=== PATIENT | female | born 1940 | race Two or more races ===

== ENCOUNTER 2024-06-12 08:47 | Inpatient (IN) | payer OTHER ==
[~2024-06-12] VITALS: Ht 157.5 cm; Wt 54.4 kg
[~2024-06-12 08:47] MED LIST: COZAAR50 MG PO; FUSION PLUS CA1 EACH PO; HORIZANT300 MG PO; HYDRODIURIL12.5 MG PO; PROTONIX40 MG PO; ZOCOR40 MG PO
--- NOTE | 2024-06-12 09:08 | NUR ---
SE RECIBE PACIENTE ALERTA Y ORIENTADA X3 LA CUAL REFIERE VENIR A [place] DE QUE TORSTENBraeden MORENO LE INDICO QUE VINIERA A [place] DE EMERGENCIAS PORQUE TENIA LA HEMOGLOBINA EN 8.80, LA MISMA REFIERE QUE LA DOCTORA LA VA A OPERAR EL VIERNES QUE VIENE DE ARLEN MASA EN EL COLON.
[2024-06-12] MEDS ORDERED: FUROsemide 20 MG/2 ML VIAL IV SCH (09:30)
[2024-06-12] MEDS ORDERED: FAMOTIDINE/PF 20 MG/2 ML VIAL ONE (09:30)
[2024-06-12] MEDS ORDERED: 0.9 % SODIUM CHLORIDE 1,000 ML IV SCH (09:30)
--- NOTE | 2024-06-12 09:51 | NUR ---
SE RECIBE PTE FEMENINA DE 84 YRS ALERTA CONCIENTE Y TRANQUILA . ES EVALUADA POR EL. QUIE ORDENA TRATAMIENTO LA CUAL SE EJECUTA POR MS.BETANCOURD BUSH . SE MANTIENE BAJO OBSRVACION.
[2024-06-12 10:03] LABS: HEMATOCRIT 27.1 % (36.0-45.00); MEAN CELL VOLUME 83.1 fL (80.00-100.00); MEAN CORPUSCULAR HEMOGLOBIN 27.9 pg (27.00-32.0); MEAN CORPUSCULAR HGB CONC 33.5 g/dl (32.0-36.0); PLATELET COUNT 624 K/uL (150-450); RED BLOOD COUNT 3.26 M/uL (4.00-6.00); RED CELL DISTRIBUTION WIDTH 17.8 % (11.5-14.5)
[2024-06-12 10:04] LABS: HEMOGLOBIN 9.1 g/dL (12.0-15.00)
[2024-06-12] MEDS ORDERED: ONDANSETRON HCL 2 MG/ML VIAL IV PRN (10:15)
[2024-06-12] MEDS ORDERED: RINGERS SOLUTION,LACTATED 1,000 ML IV SCH (10:15)
[2024-06-12 10:18] LABS: INR 1.05; PARTIAL THROMBOPLASTIN TIME 29.7 SECONDS (22.0-34.0); PROTHROMBIN TIME 11.4 SECONDS (9.0-11.5)
[2024-06-12 10:58] VITALS: BP 130/80
[2024-06-12 11:55] LABS: ALBUMIN 2.7 gm/dL (3.4-5.0); BILIRUBIN TOTAL 0.52 mg/dL (0.3-1.2); CALCIUM 9.7 mg/dL (8.5-10.1); CREATININE SERUM 1.17 mg/dL (0.55-1.02); GFR 43.96; GLOBULINA 4.7 G/DL (2.4-3.5); POTASSIUM 4.39 mEq/L (3.5-5.1); TOTAL PROTEIN 7.4 gm/dL (6.4-8.2)
[2024-06-12 12:16] LABS: ALBUMIN 2.6 gm/dL (3.4-5.0); BILIRUBIN TOTAL 0.47 mg/dL (0.3-1.2); CALCIUM 9.7 mg/dL (8.5-10.1); CREATININE SERUM 1.17 mg/dL (0.55-1.02); GFR 43.96; GLOBULINA 5.2 G/DL (2.4-3.5); HEMATOCRIT 28.1 % (36.0-45.00); MAGNESIUM 1.9 mg/dL (1.8-2.4); MEAN CELL VOLUME 83.7 fL (80.00-100.00); MEAN CORPUSCULAR HEMOGLOBIN 27.4 pg (27.00-32.0); MEAN CORPUSCULAR HGB CONC 32.7 g/dl (32.0-36.0); POTASSIUM 3.64 mEq/L (3.5-5.1); RED BLOOD COUNT 3.35 M/uL (4.00-6.00); RED CELL DISTRIBUTION WIDTH 17.3 % (11.5-14.5); TOTAL PROTEIN 7.8 gm/dL (6.4-8.2)
[2024-06-12 12:17] LABS: HEMOGLOBIN 9.2 g/dL (12.0-15.00)
[2024-06-12 12:18] LABS: PLATELET COUNT 619 K/uL (150-450)
[2024-06-12 12:24] LABS: INR 1.05; PARTIAL THROMBOPLASTIN TIME 31.6 SECONDS (22.0-34.0); PROTHROMBIN TIME 11.4 SECONDS (9.0-11.5)
[2024-06-12] MEDS ORDERED: MAGNESIUM SULFATE/D5W 100 ML IV NR (15:45)
[2024-06-12 17:00] VITALS: BP 177/75; O2SAT 98
[2024-06-12] MEDS ORDERED: POLYETHYLENE GLYCOL 3350 17 GM BLIST.PACK PO SCH (17:00)
[2024-06-12] MEDS ORDERED: FAMOTIDINE/PF 20 MG/2 ML VIAL IV SCH (21:00)
[2024-06-13 01:01] VITALS: BP 147/78; O2SAT 95
[2024-06-13 06:52] LABS: HEMATOCRIT 27.5 % (36.0-45.00); HEMOGLOBIN 9.2 g/dL (12.0-15.00); MEAN CELL VOLUME 82.5 fL (80.00-100.00); MEAN CORPUSCULAR HEMOGLOBIN 27.5 pg (27.00-32.0); MEAN CORPUSCULAR HGB CONC 33.3 g/dl (32.0-36.0); PLATELET COUNT 577 K/uL (150-450); RED BLOOD COUNT 3.34 M/uL (4.00-6.00); RED CELL DISTRIBUTION WIDTH 17.6 % (11.5-14.5)
[2024-06-13 07:35] LABS: ALBUMIN 2.2 gm/dL (3.4-5.0); CALCIUM 9.2 mg/dL (8.5-10.1); CREATININE SERUM 0.84 mg/dL (0.55-1.02); GFR 64.44; MAGNESIUM 1.9 mg/dL (1.8-2.4); PHOSPHOROUS 2.9 mg/dL (2.5-4.9); POTASSIUM 4.16 mEq/L (3.5-5.1)
[2024-06-13 08:00] VITALS: BP 127/79; O2SAT 95
[2024-06-13] MEDS ORDERED: BISACODYL 5 MG TABLET.EC PO NR (12:00)
[2024-06-13] MEDS ORDERED: POLYETHYLENE GLYCOL 3350 238 GM POWDER PO NR (13:00)
[2024-06-13 16:00] VITALS: BP 159/84; O2SAT 99
[2024-06-13] MEDS ORDERED: ENALAPRILAT DIHYDRATE 1.25 MG/ML VIAL IV PRN (19:45)
[2024-06-14 01:09] VITALS: BP 127/88; O2SAT 98
[2024-06-14 08:00] VITALS: BP 161/81; O2SAT 100
[2024-06-14] MEDS ORDERED: Cyanocobalamin/Mecobalamin 1 TAB.SL SL SCH (09:03)
[2024-06-14] MEDS ORDERED: IRON FUM,PS/FOLIC ACID/VITC/B3 1 CAP CAPSULE PO SCH (09:03)
[2024-06-14 10:33] VITALS: BP 132/64; O2SAT 96
[2024-06-14 16:00] VITALS: BP 133/76; O2SAT 95
[2024-06-14 21:44] LABS: HEMATOCRIT 36.3 % (36.0-45.00); HEMOGLOBIN 12.2 g/dL (12.0-15.00); MEAN CELL VOLUME 81.7 fL (80.00-100.00); MEAN CORPUSCULAR HEMOGLOBIN 27.4 pg (27.00-32.0); MEAN CORPUSCULAR HGB CONC 33.6 g/dl (32.0-36.0); RED BLOOD COUNT 4.44 M/uL (4.00-6.00); RED CELL DISTRIBUTION WIDTH 17.6 % (11.5-14.5)
[2024-06-14 21:54] LABS: ALBUMIN 2.4 gm/dL (3.4-5.0); CALCIUM 9.4 mg/dL (8.5-10.1); MAGNESIUM 1.5 mg/dL (1.8-2.4); POTASSIUM 4.07 mEq/L (3.5-5.1)
[2024-06-14 21:55] LABS: CREATININE SERUM 0.98 mg/dL (0.55-1.02); GFR 53.94; PHOSPHOROUS 2.5 mg/dL (2.5-4.9)
[2024-06-14 22:08] LABS: PLATELET COUNT 465 K/uL (150-450)
[2024-06-15] MEDS ORDERED: PYRIDOXINE HCL 100 MG TABLET PO SCH (09:00)
== END 2024-06-14 22:41 | disposition home or self-care (01) | DRG 376 ==
LOC: ER 08:48 → SURH 10:45 → SEC-K 10:45 → EDLOC 10:45 → SURG 14:25 → SURH 16:18 → SURG 17:32 → SURH 17:32
PROVIDERS: General Practice; ADMIT Colon & Rectal Surgery; ATTEND Colon & Rectal Surgery
PROC: 30233N1 Transfusion of Nonautologous Red Blood Cells into Peripheral Vein, Percutaneous Approach (ICD-10-PCS; principal; 2024-06-13)
DX: C18.0 Malignant neoplasm of cecum (principal); D63.0 Anemia in neoplastic disease; I10 Essential (primary) hypertension

== ENCOUNTER 2024-06-17 05:25 | Day surgery (SDC) | payer OTHER ==
[2024-06-10 14:02] VITALS: BP 147/68
[2024-06-10 19:05] LABS: RH POSITIVE
[~2024-06-17] VITALS: Ht 157.5 cm; Wt 54.9 kg
[2024-06-17] MEDS ORDERED: LIDOCAINE HCL 1%/EPINEPHRINE 20ML VIAL IJ ONE (07:22)
[2024-06-17] MEDS ORDERED: BUPIVACAINE HCL/MPF 0.5% 30ML VIAL ONE (07:22)
[2024-06-17] MEDS ORDERED: METRONIDAZOLE/SODIUM CHLORIDE 500 MG/100 ML PIGGYBACK IV ONE (07:22)
[2024-06-17] MEDS ORDERED: levoFLOXacin IN DEXTROSE 5 % 5 MG/ML PIGGYBAG IV ONE (09:00)
== END 2024-06-17 11:20 | disposition home or self-care (01) ==
LOC: CIR.AMB 05:25 → O/R 05:25 → SURH 05:25 → O/R 11:20 → CIR.AMB 11:20
PROVIDERS: ATTEND Colon & Rectal Surgery
DX: C48.2 Malignant neoplasm of peritoneum, unspecified (principal); C18.0 Malignant neoplasm of cecum; K62.1 Rectal polyp; R59.0 Localized enlarged lymph nodes; I10 Essential (primary) hypertension; M19.90 Unspecified osteoarthritis, unspecified site; Z88.6 Allergy status to analgesic agent; Z88.5 Allergy status to narcotic agent; Z88.0 Allergy status to penicillin